=== PATIENT | male | born 1955 | race Caucasian/White ===

== ENCOUNTER → 2022-07-11 09:03 | Outpatient (BNVA) | payer MEDICARE, OTHER, SELFPAY | PROVIDERS: PCP Nurse Practitioner; Referring Provider Nurse Practitioner; Visit Provider Surgery | DX: H93.8X2 Other specified disorders of left ear (principal) | CPT/HCPCS: 99202 ==

== ENCOUNTER 2023-04-29 09:33 | Outpatient (REF) | payer MEDICARE, OTHER, SELFPAY ==
[2023-04-29 10:04] LABS: Basophils Percent Auto 0.4 % (0-2); Eosinophils Absolute Auto 0.3 X10*3/uL (0.0-0.4); Eosinophils Percent Auto 2.8 % (0-4); Hematocrit 47.9 % (42.0-52.0); Hemoglobin 15.5 g/dl (14.0-18.0); Imm Gran Abs Auto 0.05 X10*3/uL (0.00-0.03); Imm Gran Pct Auto 0.6 % (0.0-0.4); Lymphocytes Absolute Auto 3.1 X10*3/uL (1.2-4.9); Lymphocytes Percent Auto 34.8 % (20-40); MANUAL DIFF FLAG NO; Mean Corpuscular HGB Conc 32.4 g/dl (31.0-36.0); Mean Corpuscular Hemoglobin 27.6 pg (27.0-33.0); Mean Corpuscular Volume 85.2 fL (80.0-98.0); Monocytes Absolute Auto 0.8 X10*3/uL (0.1-1.2); Monocytes Percent Auto 8.7 % (2-11); Neutrophils Absolute Auto 4.7 x10*3/uL (2.0-8.3); Neutrophils Percent Auto 52.7 % (45-73); Platelet Count 226 X10*3/uL (160-400); Red Blood Count 5.62 X10*6/uL (4.60-5.80); Red Cell Distribution Width 13.6 % (11.0-16.0); White Blood Count 8.9 X10*3/uL (4.8-10.8)
[2023-04-29 11:46] LABS: Alanine Aminotransferase 19 U/L (0-40); Albumin Level 4.2 g/dL (3.5-5.0); Alkaline Phosphatase 78 U/L (39-117); Anion Gap 11 (12-20); Aspartate Amino Transferase 20 U/L (5-37); Bilirubin Total 0.6 mg/dL (0.0-1.0); Blood Urea Nitrogen 16 mg/dL (9-16); Calcium 8.8 mg/dL (8.4-10.2); Carbon Dioxide 24 mmol/L (22-29); Chloride 109 mmol/L (96-108); Cholesterol 150 mg/dL; Estimated Glomerular Filt Rate > 60; Glucose Fasting 115 mg/dL (60-99); HDL Cholesterol 36 mg/dL; LDL Cholesterol Calculated 102 mg/dl; Potassium 5.2 mmol/L (3.3-5.1); Sodium 139 mmol/L (135-145); Total Protein 6.9 g/dL (6.5-8.0); Triglycerides 61 mg/dL
[2023-04-29 12:00] LABS: PSA,Total (Free>4and<10) 0.33 ng/mL (0.00-4.00); TSH reflex Free T4 1.26 uIU/mL (0.32-4.0)
[2023-04-29 14:02] LABS: Estimated Average Glucose 114 mg/dL; Hemoglobin A1c % 5.6 %
== END 2023-04-29 09:34 | disposition home or self-care (01) ==
LOC: HO.LAB 09:33
PROVIDERS: PCP Nurse Practitioner Family; Visit Provider Nurse Practitioner Family
DX: Z12.5 Encounter for screening for malignant neoplasm of prostate (principal); Z13.220 Encounter for screening for lipoid disorders; Z13.0 Encounter for screening for diseases of the blood and blood-forming organs and certain disorders involving the immune mechanism; Z13.29 Encounter for screening for other suspected endocrine disorder; I10 Essential (primary) hypertension; R73.01 Impaired fasting glucose
CPT/HCPCS: 36415; 80053; 80061; 83036; 84153; 84443; 85025

== ENCOUNTER → 2023-05-15 10:07 | Outpatient (REF) | payer MEDICARE, OTHER, SELFPAY ==
[2023-05-15 12:03] LABS: Potassium 4.4 mmol/L (3.3-5.1)
== END ==
LOC: HO.SL 10:07
PROVIDERS: PCP Nurse Practitioner Family; Visit Provider Nurse Practitioner Family
DX: G47.33 Obstructive sleep apnea (adult) (pediatric) (principal); E87.5 Hyperkalemia
CPT/HCPCS: 36415; 84132; 95806

== ENCOUNTER 2023-06-07 09:35 | Outpatient (AMB) | payer MEDICARE, OTHER, SELFPAY ==
[2023-06-07 09:38] VITALS: BP 132/70; PULSE 70; O2SAT 96; BMI 36.6
--- NOTE | 2023-06-07 09:38 | MHC.OFFVIS ---
Intake Vital Signs 06/07/23 09:38 Height 5 ft 7 in Weight 233 lb 11.04 oz BMI 36.6 BP 132/70 Blood Pressure Location Lt brachial Position Sitting Pulse 70 Pulse Source Pulse Oximeter Pulse Oximetry (%) 96 Oxygen Delivery Method Room Air Intake Visit Reasons: Obstructive sleep apnea Intake Note: New patient seen today after sleep study. He used CPAP 15 years up until 2017.He lost approx 100 pounds that year and did not use it anymore. Airplane Refueler Required: No Auditor Internal: Auditor Internal offered & declined Accompanied by: Self / Same As Patient Allergies morphine Allergy (Severe, Verified 06/07/23 09:50) Vomiting Medication List - Last Reconciled 06/07/23 by Floridalma Robins LPN amlodipine 2.5 mg PO DAILY atorvastatin 10 mg PO DAILY irbesartan 150 mg PO DAILY HPI Obstructive sleep apnea HPI Details Miki is a pleasant 68 year old male, minimal former tobacco smoker and everyday marijuana smoker ,with underlying hypertension and impaired glucose tolerance.?He was referred after recent sleep study revealed an AHI of 36.6. He was previously on CPAP therapy with nasal pillows for 10-15 years but discontinued in 2017 after significant weight loss of 100 lbs. Unfortunately, he gained half the weight back and has become more symptomatic with daytime fatigue. He denies any personal or family history of lung conditions. REPLACED BY [facility] Medical History (Updated 06/07/23 @ 10:20 by Marilu Pop NP) Ear mass Impaired glucose tolerance Surgical History History of carpal tunnel surgery Family History (Updated 04/16/23 @ 13:32 by JOSE Oleary) Mother Diabetes mellitus WALLER (nonalcoholic steatohepatitis) Father No problems noted. Maternal Grandmother Leukemia Social History (Updated 06/07/23 @ 09:55 by Floridalma Robins LPN) Housing: House Alcohol intake: current Alcohol intake frequency: holidays/special occasions only Patient Tobacco Use Status: Former Tobacco user Years Smoked: Used cigarettes for a couple of years but is currently a daily marijuana sm service: No Current occupational status: retired Cognitive needs: No Hearing needs: No Vision needs: Yes Review of Systems Const Denies chills, Denies excessive sweating, Denies fever(s), Denies headache(s) and Denies night sweats Eyes Denies dry eyes, Denies irritation and Denies itchy eyes ENT Reports Normal hearing present, Denies headache(s), Denies nasal congestion, Denies nasal discharge, Denies post nasal drip and Denies sore throat Card Denies chest pain, Denies chest pain at rest, Denies chest pain with activity, Denies claudication, Denies leg edema, Denies dyspnea, Denies dyspnea on exertion, Denies orthopnea and Denies paroxysmal nocturnal dyspnea Resp Denies chest congestion, Denies cough, Denies excessive phlegm production, Denies pain on inspiration, Denies pain with cough, Denies dyspnea, Denies dyspnea on exertion, Denies stridor and Denies wheezing Musc Denies myalgias Neuro Reports Normal hearing present and Denies headache(s) Endo Denies excessive sweating Zenon/Lymph Denies lymphadenopathy Aller/Immun Denies itchy eyes, Denies seasonal rhinorrhea and Denies wheezing Physical Exam Vital Signs: Last Vital Signs Pulse 70 06/07/23 09:38 BP 132/70 06/07/23 09:38 Pulse Ox 96 06/07/23 09:38 Oxygen Delivery Method Room Air 06/07/23 09:38 BMI result Body Mass Index 36.6 Const General: cooperative, healthy appearing, comfortable, no acute distress, well developed and alert Nutritional Appearance: obese Orientation/consciousness: patient oriented x3 Limitations: no limitations HEENT Head: Yes normal to inspection, Yes normocephalic and Yes atraumatic Ears: hearing grossly normal bilaterally and external ears normal Eyes General: appearance normal, both eyes and all related structures Eyelids: Yes eyelids normal Sclerae: sclerae normal EOM: EOMs intact bilaterally Neck Neck: Yes normal visual inspection and Yes no lymphadenopathy Lymphatic: no lymphadenopathy noted Chest Chest palpation & inspection: normal inspection of the chest Resp Effort & Inspection: normal respiratory effort, able to speak in complete sentences, no audible wheezes, no cough, no stridor, not tachypneic, no tripod positioning and no use of accessory muscles Auscultation: clear to auscultation bilaterally Cardio Jugular venous distension: no JVD Rate: regular rate Rhythm: regular rhythm Skin Other: warm, dry General skin exam: no rashes or lesions noted Neuro General: patient oriented x3 Cranial nerves: Yes Normal hearing present Cognition (Neuro): normal cognition Gait exam (Neuro): Normal gait present Extrem General: Yes normal to inspection, Yes capillary refill normal, Yes no clubbing, cyanosis or edema and Yes no pedal edema Psych Appearance: grossly normal and well kempt Speech and movement: Normal speech and movement present and Clear speech present Affect: normal affect Attitude: cooperative Thought process: Normal thought process present Thought content: Normal thought content present Insight: Good insight present (Psych) Judgement: Good judgement present (Psych) Results Reviewed Results Reviewed: Assessment & Plan Assessment & Plan (1) PAULA (obstructive sleep apnea): Code(s): G47.33 - Obstructive sleep apnea (adult) (pediatric) (2) Nocturnal hypoxemia: Code(s): G47.34 - Idiopathic sleep related nonobstructive alveolar hypoventilation Plan Reviewed sleep study report with patient which revealed severe PAULA . Will send prescription for APAP therapy with settings 6-16 and send for overnight oximetry after he has used therapy for 2-3 months to see if compliance of CPAP will correct nocturnal hypoxia. All questions were answered and patient is in agreement of plan. Will follow up after patient has used CPAP therapy for 4 weeks. Coding Level of Care Code New Pt Level 4 (70635) Diagnoses PAULA (obstructive sleep apnea) G47.33 Nocturnal hypoxemia G47.34
== END 2023-06-07 10:20 | disposition home or self-care (01) ==
PROVIDERS: PCP Nurse Practitioner Family; Visit Provider Nurse Practitioner Family
DX: G47.33 Obstructive sleep apnea (adult) (pediatric) (principal); G47.34 Idiopathic sleep related nonobstructive alveolar hypoventilation
CPT/HCPCS: 99204

== ENCOUNTER → 2023-06-07 09:35 | Outpatient (BNVA) | payer MEDICARE, OTHER, SELFPAY | PROVIDERS: PCP Nurse Practitioner Family; Visit Provider Nurse Practitioner Family | DX: G47.33 Obstructive sleep apnea (adult) (pediatric) (principal); G47.34 Idiopathic sleep related nonobstructive alveolar hypoventilation | CPT/HCPCS: 99202 ==

== ENCOUNTER 2023-07-11 09:32 | Outpatient (REF) | payer MEDICARE, OTHER, SELFPAY ==
--- NOTE | ~2023-07-11 | XR_ITS ---
EXAMINATION: XR HIP, RIGHT CLINICAL INFORMATION: Pain COMPARISON: None available. TECHNIQUE: Two views of the right hip and one view of the pelvis. FINDINGS: Bone alignment is normal. No fracture or dislocation. Bilateral hip arthritis with joint space narrowing and osteophyte formation, mild. Bones of the pelvis are normal. Sacroiliac joints and pubic symphysis. Soft tissues are normal. XR/XR hip RT w PEL1V IMPRESSION: Mild hip arthritis.
== END 2023-07-11 09:33 | disposition home or self-care (01) ==
LOC: HO.XRAY 09:32
PROVIDERS: PCP Nurse Practitioner Family; Visit Provider Nurse Practitioner Family
DX: M25.551 Pain in right hip (principal)
CPT/HCPCS: 73502

== ENCOUNTER 2023-07-11 14:07 | Outpatient (AMB) | payer MEDICARE, OTHER, SELFPAY ==
[2023-07-11 14:11] VITALS: BP 122/80; PULSE 60; O2SAT 99; BMI 37.9
--- NOTE | 2023-07-11 14:11 | A.OFFPC_ITS ---
Vital Signs 07/11/23 14:11 Height 5 ft 7 in Weight 242 lb 4 oz BMI 37.9 BP 122/80 Blood Pressure Location Lt brachial Position Sitting Pulse 60 Pulse Source Pulse Oximeter Pulse Oximetry (%) 99 Oxygen Delivery Method Room Air Intake Visit Reasons: HTN, Hypercholestermia F/U Personal Lines Insurance Advisor Required: No Accompanied by: Self / Same As Patient Allergies morphine Allergy (Severe, Verified 07/11/23 14:11) Vomiting Tobacco use date assessed: 07/11/23 Fall risk assessment: No Falls in past year Last assessed Fall Risk: 07/11/23 Dental Screening Dental Screen Date: 07/11/23 Did you have a dental visit in the last 12 months?: Yes Did you have a dental problem in the last 6 months where you did not have access to dental care?: No Was dental information given to patient?: Patient has dentist HPI HPI Comments History of Present Illness Details History significant for hypercholesteremia, hypertension and obstructive sleep apnea. Patient last seen in March presents today for follow-up visit. Review of the notes patient was seen by pulmonology for recent sleep study showing severe sleep apnea.Patient was sent prescription for APAP therapy with settings 6-16 and send for overnight oximetry after he has used therapy for 2-3 months to see if compliance of CPAP will correct nocturnal hypoxia. Patient reports right hip pain times 10 days denies any acute injury, states he takes ibuprofen with relief of pain. Patient would like x-ray to evaluate for arthritis. [facility] Medical History (Updated 07/11/23 @ 15:15 by JOSE Oleary) Anal fissure Ear mass Impaired glucose tolerance Surgical History History of carpal tunnel surgery Family History Mother Diabetes mellitus WALLER (nonalcoholic steatohepatitis) Father No problems noted. Maternal Grandmother Leukemia Social History Housing: House Alcohol intake: current Alcohol intake frequency: holidays/special occasions only Patient Tobacco Use Status: Former Tobacco user Years Smoked: Used cigarettes for a couple of years but is currently a daily marijuana sm e-Cigarette/Vaping Use: Never Used service: No Current occupational status: retired Cognitive needs: No Hearing needs: No Vision needs: Yes Questionnaire PHQ-9 Over the last 2 weeks, how often have you been bothered by any of the following problems? 1. Little interest or pleasure in doing things: more than half the days 2. Feeling down, depressed, or hopeless: several days 3. Trouble falling or staying asleep, or sleeping too much: not at all 4. Feeling tired or having little energy: several days 5. Poor appetite or overeating: several days 6. Feeling bad about yourself - or that you are a failure or have let yourself or your family down: several days 7. Trouble concentrating on things, such as reading the newspaper or watching television: several days 8. Moving or speaking so slowly that other people could have noticed. Or the opposite - being so fidgety or restless that you have been moving around a lot more than usual: several days 9. Thoughts that you would be better off or of hurting yourself in some way: not at all Total score: 8 Depression Screening Interpretation: Positive 95149 - PHQ-9 Billing: Yes Source: Developed by Drs. Froy Chaudhary, Daisy Davis, Paul Madrid and colleagues, with an educational arpit from [employer]. Thrive Questionnaire Date Thrive assessed: 07/11/23 I am a: Patient What is your living situation today?: I have a steady place to live Within the past 12 months, did the food you bought not last and you didn't have the money to get more?: Never true Within the past 12 months, did you worry whether your food would run out before you got money to buy more?: Never true Do you have trouble paying for medicines?: No Do you have trouble getting transportation to medical appointments?: No Do you have trouble paying your heating and electricity bill?: No Do you have trouble taking care of your child, family member or friend?: No Do you have trouble with day-to-day activities such as bathing, preparing meals, shopping, managing finances, etc.?: No Are you currently unemployed and looking for a job?: No Are you interested in more education?: No Please select the resources that you would like help with: None Currently or been in a relationship where the following occur: no concerns reported AUDIT C Alcohol Use Questionnaire (AUDIT-C) 1. How often do you have a drink containing alcohol?: 2-3 times a week 2. How many drinks containing alcohol do you have on a typical day when you are drinking?: 1 or 2 3. How often do you have six or more drinks on one occasion?: Never Total Score: 3 ROMEO-7 AMB Questionnaire ROMEO-7 Date ROMEO - 7 assessed: 07/11/23 Feeling nervous, anxious, or on edge: 0 = Not at all Not being able to stop or control worryin = Not at all Worrying too much about different things: 0 = Not at all Trouble relaxin = Not at all Being so restless that it is hard to sit still: 0 = Not at all Becoming easily annoyed or irritable: 0 = Not at all Feeling afraid as if something awful might happen: 0 = Not at all Total ROMEO-7 score (0-4 normal; 5-9 mild; 10-14 moderate; 15-21 severe): 0 Source: Developed by Drs. Froy Chaudhary, Daisy Davis, Paul Madrid and colleagues, with an educational arpit from [employer]. ROMEO-7 Assessment Billing ROMEO-7 Assessment Tool: ROMEO-7 Assessment 02511 Review of Systems Const Denies chills, Denies fatigue, Denies fever(s) and Denies poor appetite Eyes Denies no additional complaints ENT Reports Normal hearing present Card Denies chest pain, Denies syncope, Denies rapid heart rate and Denies dyspnea Resp Denies cough and Denies dyspnea GI Denies change in stool character, Denies constipation, Denies diarrhea, Denies nausea and Denies vomiting Denies dysuria, Denies urinary frequency and Denies urinary urgency Neuro Reports Normal hearing present, Denies confusion and Denies syncope Psych Denies confusion Endo Denies fatigue Physical exam (Primary Care) Vital Signs: Last Vital Signs Pulse 60 07/11/23 14:11 BP 122/80 07/11/23 14:11 Pulse Ox 99 07/11/23 14:11 Oxygen Delivery Method Room Air 07/11/23 14:11 BMI result Body Mass Index 37.9 Tobacco/Smoking Status: Tobacco use Status Tobacco use date assessed 07/11/23 07/11/23 14:15 Patient Tobacco Use Status Former Tobacco user 07/11/23 14:15 e-Cigarette/Vaping Use Never Used 07/11/23 14:15 PHQ-9: PHQ-9 Score PHQ-9: Total score 8 07/11/23 14:23 Depression Screening Interpretation: Positive Thrive Assessment: Date of Thrive Assessment Date Thrive assessed 07/11/23 07/11/23 14:15 Currently or been in a relationship where the following occur: no concerns reported Const General: No confusion Orientation/consciousness: No confusion HENMT Head: Yes normocephalic and Yes atraumatic Eyes Conjunctivae: conjunctivae normal Chest Chest palpation & inspection: normal inspection of the chest Resp Effort & Inspection: normal respiratory effort Auscultation: clear to auscultation bilaterally, no crackles, no rhonchi and no wheezes Cardio Rate: regular rate Rhythm: regular rhythm Heart sounds: S1 normal heart sound present and S2 normal heart sound present GI Inspection: Yes normal to inspection Neuro General: No confusion Cranial nerves: Yes Normal hearing present Extrem General: No edema Assessment and Plan Assessment & Plan (1) Right hip pain: Code(s): M25.551 - Pain in right hip Plan: Right hip x-ray ordered. Patient advise can continue to take [id number] ibuprofen as needed for pain with food to prevent GI upset. Discussed referral to physical therapy home however patient would like to proceed with x-ray prior to having referral for this. (2) Hypercholesteremia: Code(s): E78.00 - Pure hypercholesterolemia, unspecified Plan: Continue on atorvastatin 10 mg daily. Follow low-cholesterol diet. (3) PAULA (obstructive sleep apnea): Code(s): G47.33 - Obstructive sleep apnea (adult) (pediatric) Plan: Continue to follow with pulmonology continue to use APAP machins for greater than four hours a night with good effect. (4) Hypertension: Code(s): I10 - Essential (primary) hypertension Plan: Continue on amlodipine 2.5 mg daily and irbesartan 150mg daily. Follow low salt diet and excercise. Plan Follow-up in 6 months. Orders: Orders Comprehensive [place]. Panel Fast 6 Months E78.00 - Pure hypercholesterolemia, unspecified Lipid Panel 6 Months Z13.220 - Encounter for screening for lipoid disorders Complete Blood Count Auto Diff 6 Months Z13.0 - Encounter for screening for diseases of the blood and blood-forming organs and certain disorders involving the immune mechanism Coding Level of Care Code Est Pt Level 4 (07876) Diagnoses Right hip pain M25.551 Hypercholesteremia E78.00 PAULA (obstructive sleep apnea) G47.33 Hypertension I10 Additional Codes ROMEO-7 Assessment Billing - ROMEO-7 Assessment Tool: ROMEO-7 Assessment 15007 ([id number])
== END 2023-07-11 14:39 | disposition home or self-care (01) ==
PROVIDERS: PCP Nurse Practitioner Family; Visit Provider Nurse Practitioner Family
DX: M25.551 Pain in right hip (principal); E78.00 Pure hypercholesterolemia, unspecified; G47.33 Obstructive sleep apnea (adult) (pediatric); I10 Essential (primary) hypertension
CPT/HCPCS: 99214

== ENCOUNTER 2023-07-26 09:08 | Outpatient (AMB) | payer MEDICARE, OTHER, SELFPAY ==
[2023-07-26 09:11] VITALS: BP 130/68; PULSE 64; O2SAT 96; BMI 37.1
--- NOTE | 2023-07-26 09:11 | A.OFFVIS_ITS ---
Intake Vital Signs 07/26/23 09:11 Height 5 ft 7 in Weight 236 lb 15.951 oz BMI 37.1 BP 130/68 Blood Pressure Location Rt brachial Position Sitting Pulse 64 Pulse Oximetry (%) 96 Intake Visit Reasons: Obstructive sleep apnea Home Extension Agent Required: No Compo Caster: Compo Caster offered & declined Accompanied by: Self / Same As Patient Allergies morphine Allergy (Severe, Verified 07/26/23 09:18) Vomiting Medication List - Last Reconciled 07/26/23 by Floridalma Robins LPN amlodipine 2.5 mg PO DAILY atorvastatin 10 mg PO DAILY irbesartan 150 mg PO DAILY HPI Obstructive sleep apnea HPI Details Miki is a pleasant 68 year old male, minimal former tobacco smoker and everyday marijuana smoker ,with underlying severe obstructive sleep apnea.?Since the last visit, he started CPAP therapy and has been averaging 5 hours per night with notable improvements in daytime fatigue. From a respiratory standpoint, he feels his symptoms are well controlled and denies any other symptoms. COUNTS INCLUDE 234 BEDS AT THE [facility] Medical History (Updated 07/16/23 @ 13:12 by JOSE Oleary) Anal fissure Ear mass Impaired glucose tolerance Surgical History History of carpal tunnel surgery Family History Mother Diabetes mellitus WALLER (nonalcoholic steatohepatitis) Father No problems noted. Maternal Grandmother Leukemia Social History Housing: House Alcohol intake: current Alcohol intake frequency: holidays/special occasions only Patient Tobacco Use Status: Former Tobacco user Years Smoked: Used cigarettes for a couple of years but is currently a daily marijuana sm e-Cigarette/Vaping Use: Never Used service: No Current occupational status: retired Cognitive needs: No Hearing needs: No Vision needs: Yes Review of Systems Const Denies chills, Denies excessive sweating, Denies fever(s), Denies headache(s) and Denies night sweats Eyes Denies dry eyes, Denies irritation and Denies itchy eyes ENT Reports Normal hearing present, Denies headache(s), Denies nasal congestion, Denies nasal discharge, Denies post nasal drip and Denies sore throat Card Denies chest pain, Denies chest pain at rest, Denies chest pain with activity, Denies claudication, Denies leg edema, Denies dyspnea, Denies dyspnea on exertion, Denies orthopnea and Denies paroxysmal nocturnal dyspnea Resp Denies chest congestion, Denies cough, Denies excessive phlegm production, Denies pain on inspiration, Denies pain with cough, Denies dyspnea, Denies dyspnea on exertion, Denies stridor and Denies wheezing Musc Denies myalgias Neuro Reports Normal hearing present and Denies headache(s) Endo Denies excessive sweating Zenon/Lymph Denies lymphadenopathy Aller/Immun Denies itchy eyes, Denies seasonal rhinorrhea and Denies wheezing Physical Exam Vital Signs: Last Vital Signs Pulse 64 07/26/23 09:11 BP 130/68 07/26/23 09:11 Pulse Ox 96 07/26/23 09:11 BMI result Body Mass Index 37.1 Const General: cooperative, healthy appearing, comfortable, no acute distress, well developed and alert Nutritional Appearance: obese Orientation/consciousness: patient oriented x3 Limitations: no limitations HEENT Head: Yes normal to inspection, Yes normocephalic and Yes atraumatic Ears: hearing grossly normal bilaterally and external ears normal Eyes General: appearance normal, both eyes and all related structures Eyelids: Yes eyelids normal Sclerae: sclerae normal EOM: EOMs intact bilaterally Neck Neck: Yes normal visual inspection and Yes no lymphadenopathy Lymphatic: no lymphadenopathy noted Chest Chest palpation & inspection: normal inspection of the chest Resp Effort & Inspection: normal respiratory effort, able to speak in complete sentences, no audible wheezes, no cough, no stridor, not tachypneic, no tripod positioning and no use of accessory muscles Auscultation: clear to auscultation bilaterally Cardio Jugular venous distension: no JVD Rate: regular rate Rhythm: regular rhythm Skin Other: warm, dry General skin exam: no rashes or lesions noted Neuro General: patient oriented x3 Cranial nerves: Yes Normal hearing present Cognition (Neuro): normal cognition Gait exam (Neuro): Normal gait present Extrem General: Yes normal to inspection, Yes capillary refill normal, Yes no clubbing, cyanosis or edema and Yes no pedal edema Psych Appearance: grossly normal and well kempt Speech and movement: Normal speech and movement present and Clear speech present Affect: normal affect Attitude: cooperative Thought process: Normal thought process present Thought content: Normal thought content present Insight: Good insight present (Psych) Judgement: Good judgement present (Psych) Results Reviewed Results Reviewed: Assessment & Plan Assessment & Plan (1) PAULA (obstructive sleep apnea): Code(s): G47.33 - Obstructive sleep apnea (adult) (pediatric) (2) Nocturnal hypoxemia: Code(s): G47.34 - Idiopathic sleep related nonobstructive alveolar hypoventilation Plan Reviewed compliance report with patient and he has been wearing his device on average 5 hours per night. He does report some difficulties adjusting. He is aware the goal is to use CPAP therapy the entire night which he plans to work towards. Overall he reports improvements in daytime fatigue. Will send for overnight oximetry after he has used therapy for a few months to see if compliance of CPAP will correct nocturnal hypoxia. All questions were answered and patient is in agreement of plan. Will follow up in three months or sooner if needed. Coding Level of Care Code Est Pt Level 3 (83556) Diagnoses PAULA (obstructive sleep apnea) G47.33 Nocturnal hypoxemia G47.34
== END 2023-07-26 09:45 | disposition home or self-care (01) ==
PROVIDERS: PCP Nurse Practitioner Family; Visit Provider Nurse Practitioner Family
DX: G47.33 Obstructive sleep apnea (adult) (pediatric) (principal); G47.34 Idiopathic sleep related nonobstructive alveolar hypoventilation
CPT/HCPCS: 99213

== ENCOUNTER → 2023-07-26 09:08 | Outpatient (BNVA) | payer MEDICARE, OTHER, SELFPAY | PROVIDERS: PCP Nurse Practitioner Family; Visit Provider Nurse Practitioner Family | DX: G47.33 Obstructive sleep apnea (adult) (pediatric) (principal); G47.34 Idiopathic sleep related nonobstructive alveolar hypoventilation | CPT/HCPCS: 99212 ==

== ENCOUNTER 2023-10-25 13:38 | Outpatient (AMB) | payer MEDICARE, OTHER, SELFPAY ==
[2023-10-25 13:43] VITALS: BP 126/74; PULSE 78; O2SAT 95; BMI 40.1
--- NOTE | 2023-10-25 13:43 | A.OFFVIS_ITS ---
Intake Vital Signs 10/25/23 13:43 Height 5 ft 7 in Weight 256 lb BMI 40.1 BP 126/74 Blood Pressure Location Lt brachial Position Sitting Pulse 78 Pulse Source Pulse Oximeter Pulse Oximetry (%) 95 Oxygen Delivery Method Room Air Intake Visit Reasons: Obstructive sleep apnea Social Media Specialist Required: No Heat Sealing Machine Operator: Heat Sealing Machine Operator offered & declined Accompanied by: Self / Same As Patient Allergies morphine Allergy (Severe, Verified 10/25/23 13:47) Vomiting Medication List - Last Reconciled 10/25/23 by Floridalma Robins LPN amlodipine 2.5 mg PO DAILY atorvastatin 10 mg PO DAILY irbesartan 150 mg PO DAILY HPI Obstructive sleep apnea HPI Details Miki is a pleasant 68 year old male, minimal former tobacco smoker and everyday marijuana smoker ,with underlying severe obstructive sleep apnea.?Since the last visit, he started CPAP therapy and has been averaging 5 hours per night with notable improvements in daytime fatigue. From a respiratory standpoint, he feels his symptoms are well controlled and denies any other symptoms. We reviewed compliance report which did reveal less than adequate compliance, however patient states he has been out of town on four different occasions over the past three months. He states he is concerned about losing the CPAP machine. Overall, he reports improvements with using CPAP therapy and AHI <3, prior to using >30. [facility] Medical History (Updated 07/16/23 @ 13:12 by JOSE Oleary) Anal fissure Impaired glucose tolerance Ear mass Surgical History History of carpal tunnel surgery Family History Mother Diabetes mellitus WALLER (nonalcoholic steatohepatitis) Father No problems noted. Maternal Grandmother Leukemia Social History (Updated 10/25/23 @ 13:47 by Floridalma Robins LPN) Housing: House Alcohol intake: current Alcohol intake frequency: holidays/special occasions only Patient Tobacco Use Status: Former Tobacco user Years Smoked: Used cigarettes for a couple of years but is currently a daily marijuana sm e-Cigarette/Vaping Use: Never Used service: No Current occupational status: retired Cognitive needs: No Hearing needs: No Vision needs: Yes Review of Systems Const Denies chills, Denies excessive sweating, Denies fever(s), Denies headache(s) and Denies night sweats Eyes Denies dry eyes, Denies irritation and Denies itchy eyes ENT Reports Normal hearing present, Denies headache(s), Denies nasal congestion, Denies nasal discharge, Denies post nasal drip and Denies sore throat Card Denies chest pain, Denies chest pain at rest, Denies chest pain with activity, Denies claudication, Denies leg edema, Denies dyspnea, Denies dyspnea on exertion, Denies orthopnea and Denies paroxysmal nocturnal dyspnea Resp Denies chest congestion, Denies cough, Denies excessive phlegm production, Denies pain on inspiration, Denies pain with cough, Denies dyspnea, Denies dyspnea on exertion, Denies stridor and Denies wheezing Musc Denies myalgias Neuro Reports Normal hearing present and Denies headache(s) Endo Denies excessive sweating Zenon/Lymph Denies lymphadenopathy Aller/Immun Denies itchy eyes, Denies seasonal rhinorrhea and Denies wheezing Physical Exam Vital Signs: Last Vital Signs Pulse 78 10/25/23 13:43 BP 126/74 10/25/23 13:43 Pulse Ox 95 10/25/23 13:43 Oxygen Delivery Method Room Air 10/25/23 13:43 BMI result Body Mass Index 40.1 Const General: cooperative, healthy appearing, comfortable, no acute distress, well developed and alert Nutritional Appearance: obese Orientation/consciousness: patient oriented x3 Limitations: no limitations HEENT Head: Yes normal to inspection, Yes normocephalic and Yes atraumatic Ears: hearing grossly normal bilaterally and external ears normal Eyes General: appearance normal, both eyes and all related structures Eyelids: Yes eyelids normal Sclerae: sclerae normal EOM: EOMs intact bilaterally Neck Neck: Yes normal visual inspection and Yes no lymphadenopathy Lymphatic: no lymphadenopathy noted Chest Chest palpation & inspection: normal inspection of the chest Resp Effort & Inspection: normal respiratory effort, able to speak in complete sentences, no audible wheezes, no cough, no stridor, not tachypneic, no tripod positioning and no use of accessory muscles Auscultation: clear to auscultation bilaterally Cardio Jugular venous distension: no JVD Rate: regular rate Rhythm: regular rhythm Skin Other: warm, dry General skin exam: no rashes or lesions noted Neuro General: patient oriented x3 Cranial nerves: Yes Normal hearing present Cognition (Neuro): normal cognition Gait exam (Neuro): Normal gait present Extrem General: Yes normal to inspection, Yes capillary refill normal, Yes no clubbing, cyanosis or edema and Yes no pedal edema Psych Appearance: grossly normal and well kempt Speech and movement: Normal speech and movement present and Clear speech present Affect: normal affect Attitude: cooperative Thought process: Normal thought process present Thought content: Normal thought content present Insight: Good insight present (Psych) Judgement: Good judgement present (Psych) Assessment & Plan Assessment & Plan (1) PAULA (obstructive sleep apnea): Code(s): G47.33 - Obstructive sleep apnea (adult) (pediatric) (2) Nocturnal hypoxemia: Code(s): G47.34 - Idiopathic sleep related nonobstructive alveolar hypoventilation Plan Reviewed compliance report with patient and he has been wearing his device on average 5 hours per night. He does report some difficulties adjusting, mostly with nasal congestion, advised to increase humidity. He is aware the goal is to use CPAP therapy greater than 4 hours, atleast 70% of the month. Again, he reports improvements in daytime fatigue. Since he has been using for a few months, will enter order overnight oximetry, as he had significant nocturnal hypoxemia during the sleep study. All questions were answered and patient is in agreement of plan. Will follow up in six months or sooner if needed. Orders: Orders Overnight Pulse Oximetry Today G47.34 - Idiopathic sleep related nonobstructive alveolar hypoventilation Coding Level of Care Code Est Pt Level 4 (74725) Diagnoses PAULA (obstructive sleep apnea) G47.33 Nocturnal hypoxemia G47.34
== END 2023-10-25 14:19 | disposition home or self-care (01) ==
PROVIDERS: PCP Nurse Practitioner Family; Visit Provider Nurse Practitioner Family
DX: G47.33 Obstructive sleep apnea (adult) (pediatric) (principal); G47.34 Idiopathic sleep related nonobstructive alveolar hypoventilation
CPT/HCPCS: 99214

== ENCOUNTER → 2023-10-25 13:38 | Outpatient (BNVA) | payer MEDICARE, OTHER, SELFPAY | PROVIDERS: PCP Nurse Practitioner Family; Visit Provider Nurse Practitioner Family | DX: G47.33 Obstructive sleep apnea (adult) (pediatric) (principal); G47.34 Idiopathic sleep related nonobstructive alveolar hypoventilation | CPT/HCPCS: 99212 ==

== ENCOUNTER 2024-02-10 09:27 | Outpatient (AMB) | payer MEDICARE, OTHER, SELFPAY ==
--- NOTE | 2024-02-10 09:38 | A.OFFPC_ITS ---
Vital Signs 02/10/24 09:41 Height 5 ft 7 in Weight 254 lb BMI 39.8 BP 130/62 Blood Pressure Location Lt brachial Position Sitting Pulse 63 Pulse Source Pulse Oximeter Pulse Oximetry (%) 94 Oxygen Delivery Method Room Air Intake Visit Reasons: follow up Intake Note: Patient is here to follow up on PAULA, HTN, Hypercholesteremia, Impaired fasting glucose. Sane Nurse Required: No Plumber'S Assistant: Not Required per policy Accompanied by: Self / Same As Patient Allergies morphine Allergy (Severe, Verified 02/10/24 11:14) Vomiting Medication List - Last Reconciled 02/10/24 by Eric Saleem MD amlodipine 2.5 mg PO DAILY atorvastatin 10 mg PO DAILY irbesartan 150 mg PO DAILY Tobacco use date assessed: 02/10/24 Fall risk assessment: No Falls in past year Last assessed Fall Risk: 02/10/24 Dental Screening Dental Screen Date: 02/10/24 Did you have a dental visit in the last 12 months?: Yes Did you have a dental problem in the last 6 months where you did not have access to dental care?: No Was dental information given to patient?: Patient has dentist HPI follow up HPI Details 68-year-old male presents to the office to discuss his medical problems. I will be assuming his care as the previous provider has left the practice. Patient has a fissure on the skin along his buttocks. Itches and has discomfort symptoms. Patient is retired and able to function and do all activities of daily living. If he does not take fiber, his stools tend to be loose. He has had a colonoscopy at age 52 and at 89. No polyps have been identified. Regular use of marijuana. COUNTS INCLUDE 234 BEDS AT THE [facility] Medical History (Updated 02/10/24 @ 11:17 by Eric Saleem MD) Class 2 severe obesity with body mass index (BMI) of 35 to 39.9 with serious comorbidity Anal fissure Impaired glucose tolerance Ear mass Surgical History History of ear surgery History of carpal tunnel surgery Family History Mother Diabetes mellitus WALLER (nonalcoholic steatohepatitis) Father No problems noted. Maternal Grandmother Leukemia Other Mental health disorder Substance use disorder Social History Housing: House Alcohol intake: current Alcohol intake frequency: a few times a week Patient Tobacco Use Status: Former Tobacco user Years Smoked: Used cigarettes for a couple of years but is currently a daily marijuana sm e-Cigarette/Vaping Use: Never Used service: No Current occupational status: retired Cognitive needs: No Hearing needs: No Vision needs: Yes (Glasses) Questionnaire PHQ-9 Over the last 2 weeks, how often have you been bothered by any of the following problems? 1. Little interest or pleasure in doing things: nearly every day 2. Feeling down, depressed, or hopeless: more than half the days 3. Trouble falling or staying asleep, or sleeping too much: nearly every day 4. Feeling tired or having little energy: several days 5. Poor appetite or overeating: nearly every day 6. Feeling bad about yourself - or that you are a failure or have let yourself or your family down: several days 7. Trouble concentrating on things, such as reading the newspaper or watching television: more than half the days 8. Moving or speaking so slowly that other people could have noticed. Or the opposite - being so fidgety or restless that you have been moving around a lot more than usual: not at all 9. Thoughts that you would be better off or of hurting yourself in some way: nearly every day Total score: 18 Depression Screening Interpretation: Positive Depression Screening Follow-up: Existing condition and Community Mental Health Worker F/U Depression Screening Done: Yes Source: Developed by Drs. Froy Chaudhary, Daisy Davis, Paul Madrid and colleagues, with an educational arpit from [employer]. Thrive Questionnaire Date Thrive assessed: 02/10/24 I am a: Patient What is your living situation today?: I have a steady place to live Within the past 12 months, did the food you bought not last and you didn't have the money to get more?: Never true Within the past 12 months, did you worry whether your food would run out before you got money to buy more?: Never true Do you have trouble paying for medicines?: No Do you have trouble getting transportation to medical appointments?: No Do you have trouble paying your heating and electricity bill?: No Do you have trouble taking care of your child, family member or friend?: No Do you have trouble with day-to-day activities such as bathing, preparing meals, shopping, managing finances, etc.?: No Are you currently unemployed and looking for a job?: No Are you interested in more education?: No Currently or been in a relationship where the following occur: no concerns reported THRIVE Score: 0 AUDIT C Alcohol Use Questionnaire (AUDIT-C) 1. How often do you have a drink containing alcohol?: 2-3 times a week 2. How many drinks containing alcohol do you have on a typical day when you are drinking?: 1 or 2 3. How often do you have six or more drinks on one occasion?: Never Total Score: 3 ROMEO-7 AMB Questionnaire ROMEO-7 Date ROMEO - 7 assessed: 02/10/24 Feeling nervous, anxious, or on edge: 0 = Not at all Not being able to stop or control worryin = Not at all Worrying too much about different things: 0 = Not at all Trouble relaxin = Not at all Being so restless that it is hard to sit still: 0 = Not at all Becoming easily annoyed or irritable: 0 = Not at all Feeling afraid as if something awful might happen: 0 = Not at all Total ORMEO-7 score (0-4 normal; 5-9 mild; 10-14 moderate; 15-21 severe): 0 Source: Developed by Drs. Froy Chaudhary, Daisy Davis, Paul Madrid and colleagues, with an educational arpti from [employer]. Physical exam (Primary Care) Vital Signs: Last Vital Signs Pulse 63 02/10/24 09:41 BP 130/62 02/10/24 09:41 Pulse Ox 94 02/10/24 09:41 Oxygen Delivery Method Room Air 02/10/24 09:41 Blood pressure is stable on current medications. BMI result Body Mass Index 39.8 BMI Assessment/Plan discussion: High (1 lb per week weight loss suggested.) BMI High, discussed plan: lifestyle, weight reduction and dietary Tobacco/Smoking Status: Tobacco use Status Tobacco use date assessed 02/10/24 02/10/24 09:41 Patient Tobacco Use Status Former Tobacco user 02/10/24 09:49 e-Cigarette/Vaping Use Never Used 02/10/24 09:49 PHQ-9: PHQ-9 Score PHQ-9: Total score 18 02/10/24 09:53 Depression Screening Interpretation: Positive Depression Screening Follow-up: Existing condition and Community Mental Health Worker F/U Thrive Assessment: Date of Thrive Assessment Date Thrive assessed 02/10/24 02/10/24 09:41 Currently or been in a relationship where the following occur: no concerns reported Advance Care Planning discussion: Exists, not on file Who was present: Patient Forms completed: Health Care Proxy and MOLST Actual minutes spent: 5 Const General: cooperative and healthy appearing Nutritional Appearance: well nourished Orientation/consciousness: patient oriented x3 Limitations: no limitations HENMT Head: Yes normal to inspection Eyes General: appearance normal, both eyes and all related structures Neck Neck: Yes normal visual inspection Chest Chest palpation & inspection: normal palpation of entire chest wall Resp Effort & Inspection: normal respiratory effort Skin Other: Intergluteal cleft: Erythematous area with break of skin. Neuro General: patient oriented x3 Results AMB Hemoglobin A1c AMB Hemoglobin A1c 5.9 % Last Edit by PHILLIP Knapp on 02/10/24 09:54 Results Reviewed Results Reviewed: Laboratory Last Values Hgb A1c (Clinic) 5.9 % (4.0-6.0) 02/10/24 09:41 Assessment and Plan Assessment & Plan (1) Hypertension: Code(s): I10 - Essential (primary) hypertension Plan: Blood work ordered. Continue current medications. (2) Hypercholesteremia: Code(s): E78.00 - Pure hypercholesterolemia, unspecified Plan: Blood work ordered. Will call with the results. (3) PAULA (obstructive sleep apnea): Code(s): G47.33 - Obstructive sleep apnea (adult) (pediatric) Plan: Continue current management. (4) Irritant dermatitis: Code(s): L24.9 - Irritant contact dermatitis, unspecified cause Plan Hydrocortisone 2 and 0.5% cream to be applied to the affected area. Patient was advised to keep the area dry. Orders: Orders AMB Hemoglobin A1c Today R73.01 - Impaired fasting glucose Lipid Panel Today I10 - Essential (primary) hypertension Liver Panel Today I10 - Essential (primary) hypertension UA and rflx microscopic Today I10 - Essential (primary) hypertension Basic Metabolic Panel Today I10 - Essential (primary) hypertension Complete Blood Count no Diff Today I10 - Essential (primary) hypertension Thyroid Stimulating Hormone Today I10 - Essential (primary) hypertension Coding Level of Care Code Est Pt Level 4 (17326) Diagnoses Hypertension I10 Hypercholesteremia E78.00 PAULA (obstructive sleep apnea) G47.33 Irritant dermatitis L24.9 Additional Codes Vital Signs *Quality* - Advance Care Planning discussion: Exists, not on file ([id number])
[2024-02-10 09:41] VITALS: BP 130/62; PULSE 63; O2SAT 94; BMI 39.8
== END 2024-02-10 10:44 | disposition home or self-care (01) ==
PROVIDERS: PCP Nurse Practitioner Family; Visit Provider Internal Medicine
DX: I10 Essential (primary) hypertension (principal); E78.00 Pure hypercholesterolemia, unspecified; G47.33 Obstructive sleep apnea (adult) (pediatric); L24.9 Irritant contact dermatitis, unspecified cause; R73.01 Impaired fasting glucose; Z00.00 Encounter for general adult medical examination without abnormal findings
CPT/HCPCS: 1123F; 83036; 99214

== ENCOUNTER 2024-03-30 08:58 | Outpatient (REF) | payer MEDICARE, OTHER, SELFPAY ==
[2024-03-30 09:32] LABS: Hematocrit 44.6 % (42.0-52.0); Hemoglobin 14.6 g/dl (14.0-18.0); Mean Corpuscular HGB Conc 32.7 g/dl (31.0-36.0); Mean Corpuscular Hemoglobin 27.3 pg (27.0-33.0); Mean Corpuscular Volume 83.4 fL (80.0-98.0); Mean Platelet Volume 9.3 fL (9.4-12.4); Platelet Count 279 X10*3/uL (160-400); Red Blood Count 5.35 X10*6/uL (4.60-5.80); Red Cell Distribution Width 14.6 % (11.0-16.0); White Blood Count 10.9 X10*3/uL (4.8-10.8)
[2024-03-30 09:37] LABS: Appearance Urine Clear; Color Urine Yellow; Glucose Urine UA Negative (Negative); Leukocyte Esterase Urine Small (1+) (Negative); Nitrite Urine Negative (Negative); PH 5.5 (5.0-9.0); Specific Gravity - Urine 1.015 (1.005-1.025); UMIC TRIGGER UA YES; Urine Blood Negative (Negative); Urine Ketones Negative (Negative); Urine Protein Negative (Neg-Trace)
[2024-03-30 09:47] LABS: Bacteria Urine None Seen (None Seen); Hyaline Casts Urine 0-2 /LPF (0-2); RBC Urine 0-2 /HPF (0-2); Squamous Epithelial Cell Urine 0-2 /HPF (0-2); WBC Urine 0-5 /HPF (0-5)
[2024-03-30 10:18] LABS: Alanine Aminotransferase 19 U/L (0-40); Albumin Level 4.2 g/dL (3.5-5.0); Alkaline Phosphatase 101 U/L (39-117); Anion Gap 15 (12-20); Aspartate Amino Transferase 22 U/L (5-37); Bilirubin Direct 0.2 mg/dL (0.0-0.5); Bilirubin Total 0.6 mg/dL (0.0-1.0); Blood Urea Nitrogen 10 mg/dL (9-16); Calcium 9.5 mg/dL (8.4-10.2); Carbon Dioxide 25 mmol/L (22-29); Chloride 108 mmol/L (96-108); Cholesterol 135 mg/dL (<200); Estimated Glomerular Filt Rate > 60; Glucose Random 126 mg/dL (60-115); HDL Cholesterol 32 mg/dL (>40); LDL Cholesterol Calculated 88 mg/dL (<100); Potassium 4.7 mmol/L (3.3-5.1); Sodium 143 mmol/L (135-145); Total Protein 7.5 g/dL (6.5-8.0); Triglycerides 76 mg/dL (<150)
[2024-03-30 10:35] LABS: Thyroid Stimulating Hormone 2.29 uIU/mL (0.32-4.0)
== END 2024-03-30 08:59 | disposition home or self-care (01) ==
LOC: HO.LAB 08:58
PROVIDERS: PCP Internal Medicine; Visit Provider Internal Medicine
DX: I10 Essential (primary) hypertension (principal)
CPT/HCPCS: 36415; 80048; 80061; 80076; 81001; 84443; 85027

== ENCOUNTER 2025-04-12 13:34 | Outpatient (AMB) | payer MEDICARE, OTHER, SELFPAY ==
--- NOTE | 2025-04-12 13:05 | A.OFFVIS_ITS ---
Vital Signs 04/12/25 13:37 Height 5 ft 7 in Weight 268 lb 15.423 oz BMI 42.1 BP 130/74 Blood Pressure Location Rt brachial Position Sitting Pulse 60 Pulse Source Pulse Oximeter Pulse Oximetry (%) 94 Oxygen Delivery Method Room Air Intake Visit Reasons: paula Allergies morphine Allergy (Severe, Verified 04/12/25 13:40) Vomiting HPI HPI paula: Details: Miki is a pleasant 70 year old male, minimal former tobacco smoker and everyday marijuana smoker ,with underlying severe obstructive sleep apnea and moderate nocturnal hypoxemia. Patient was last evaluated 10/2023 and has been lost to follow up. Since the last visit, he was started on CPAP therapy and presents to review compliance report. Prior home sleep study revealed severe PAULA, AHI 36.6, with nocturnal hypoxemia, lowest 82%, <88% 126 minutes, with recommendations for in lab sleep study however patient lost to follow up. We reviewed compliance report which revealed less than adequate compliance, in regards to usage greater than 4 hours but has been using for >70% of the time. He attributes difficulties with mask and has others to trial. [facility], [facility] Medical History (Updated 04/12/25 @ 15:02 by Marilu Pop NP) Class 2 severe obesity with body mass index (BMI) of 35 to 39.9 with serious comorbidity Anal fissure Impaired glucose tolerance Ear mass Surgical History History of ear surgery History of carpal tunnel surgery Family History Mother Diabetes mellitus WALLER (nonalcoholic steatohepatitis) Father No problems noted. Maternal Grandmother Leukemia Other Mental health disorder Substance use disorder Social History Housing: House Alcohol intake: current Alcohol intake frequency: a few times a week Patient Tobacco Use Status: Former Tobacco user Years Smoked: Used cigarettes for a couple of years but is currently a daily marijuana sm e-Cigarette/Vaping Use: Never Used service: No Current occupational status: retired Cognitive needs: No Hearing needs: No Vision needs: Yes (Glasses) Review of Systems Const Denies chills, Denies excessive sweating, Denies fever(s), Denies headache(s) and Denies night sweats Eyes Denies dry eyes, Denies irritation and Denies itchy eyes ENT Reports Normal hearing present, Denies headache(s), Denies nasal congestion, Denies nasal discharge, Denies post nasal drip and Denies sore throat Card Denies chest pain, Denies chest pain at rest, Denies chest pain with activity, Denies claudication, Denies leg edema, Denies dyspnea, Denies dyspnea on exertion, Denies orthopnea and Denies paroxysmal nocturnal dyspnea Resp Denies chest congestion, Denies cough, Denies excessive phlegm production, Denies pain on inspiration, Denies pain with cough, Denies dyspnea, Denies dysp ginny on exertion, Denies stridor and Denies wheezing Musc Denies myalgias Neuro Reports Normal hearing present and Denies headache(s) Endo Denies excessive sweating Zenon/Lymph Denies lymphadenopathy Aller/Immun Denies itchy eyes, Denies seasonal rhinorrhea and Denies wheezing Physical Exam Vital Signs: Last Vital Signs Pulse 60 04/12/25 13:37 BP 130/74 04/12/25 13:37 Pulse Ox 94 04/12/25 13:37 Oxygen Delivery Method Room Air 04/12/25 13:37 BMI result Body Mass Index 42.1 Const General: cooperative, healthy appearing, comfortable, no acute distress, well developed and alert Nutritional Appearance: obese Orientation/consciousness: patient oriented x3 Limitations: no limitations HEENT Head: Yes normal to inspection, Yes normocephalic and Yes atraumatic Ears: hearing grossly normal bilaterally and external ears normal Eyes General: appearance normal, both eyes and all related structures Eyelids: Yes eyelids normal Sclerae: sclerae normal EOM: EOMs intact bilaterally Neck Neck: Yes normal visual inspection and Yes no lymphadenopathy Lymphatic: no lymphadenopathy noted Chest Chest palpation & inspection: normal inspection of the chest Resp Effort & Inspection: normal respiratory effort, able to speak in complete sentences, no audible wheezes, no cough, no stridor, not tachypneic, no tripod positioning and no use of accessory muscles Auscultation: clear to auscultation bilaterally Cardio Jugular venous distension: no JVD Rate: regular rate Rhythm: regular rhythm Skin Other: warm, dry General skin exam: no rashes or lesions noted Neuro General: patient oriented x3 Cranial nerves: Yes Normal hearing present Cognition (Neuro): normal cognition Gait exam (Neuro): Normal gait present Extrem General: Yes normal to inspection, Yes capillary refill normal, Yes no clubbing, cyanosis or edema and Yes no pedal edema Psych Appearance: grossly normal and well kempt Speech and movement: Normal speech and movement present and Clear speech present Affect: normal affect Attitude: cooperative Thought process: Normal thought process present Thought content: Normal thought content present Insight: Good insight present (Psych) Judgement: Good judgement present (Psych) Assessment & Plan Assessment & Plan (1) Severe obstructive sleep apnea: Code(s): G47.33 - Obstructive sleep apnea (adult) (pediatric) Category: Medical (2) Nocturnal hypoxemia: Code(s): G47.34 - Idiopathic sleep related nonobstructive alveolar hypoventilation Category: Medical Plan Reviewed compliance report with patient and he has been using CPAP therapy in APAP mode with pressures 9-19 cm H20 on average <4 hours per night. He does report some difficulties adjusting, mostly with nasal congestion, advised to increase humidity and trial nasal spray as well as trialing different masks. He is aware the goal is to use CPAP therapy greater than 4 hours, at least 70% of the month. At this time, patient agreeable to in lab titration study to ensure optimal pressures and resolution of moderate nocturnal hypoxemia. All questions were answered and patient is in agreement of plan. Will follow up to review results or sooner if needed. Orders: Orders RT PSG in-lab sleep titration Today G47.33 - Obstructive sleep apnea (adult) (pediatric), G47.34 - Idiopathic sleep related nonobstructive alveolar hypoventilation Coding Level of Care Code Est Pt Level 4 (01069) Diagnoses Severe obstructive sleep apnea G47.33 Nocturnal hypoxemia G47.34
[2025-04-12 13:37] VITALS: BP 130/74; PULSE 60; O2SAT 94; BMI 42.1
== END 2025-04-12 14:02 | disposition home or self-care (01) ==
LOC: HO.HPS 13:35
PROVIDERS: PCP Nurse Practitioner Family; Visit Provider Nurse Practitioner Family
DX: G47.33 Obstructive sleep apnea (adult) (pediatric) (principal); G47.34 Idiopathic sleep related nonobstructive alveolar hypoventilation
CPT/HCPCS: 99214

== ENCOUNTER → 2025-04-12 13:34 | Outpatient (BNVA) | payer MEDICARE, OTHER, SELFPAY | PROVIDERS: PCP Nurse Practitioner Family; Visit Provider Nurse Practitioner Family | DX: G47.33 Obstructive sleep apnea (adult) (pediatric) (principal); G47.34 Idiopathic sleep related nonobstructive alveolar hypoventilation | CPT/HCPCS: 99212 ==

== ENCOUNTER → 2025-05-19 19:30 | Outpatient (REF) | payer MEDICARE, OTHER, SELFPAY ==
--- OUTSIDE RECORDS SUMMARY | 2025-05-19 22:01 | XMS_ITS | Patient Health Record ---
Author Organization [facility]any terry [place] Address [address] [place] [address] Care Team Providers Care [employer] Name Role Phone Lacie GRACE, Chacha Primary Care Provider U Ady Ivan Unavailable [phone] Allergies Allergen (clinical drug ingredient) Drug/Non Drug Allergy documented on EMR Reaction Allergy Type Onset Date Status morphine Morphine vomiting Drug Allergy Active Reason For Referral No Information Medications Medication SIG (Take, Route, Frequency, Duration) Notes Start Date End Date Status Avapro 150 MG Orally Active Atorvastatin Calcium 10 MG Orally Once a day Active Valsartan-hydroCHLOROthia zide 160-12.5 MG Orally Once a day Not-Ta lazaro amLODIPine Besylate 2.5 MG Orally Active Social History Tobacco Use: Social History Observation Description Date Details (start date - stop date) Never Smoker NA - NA Tobacco Use/Smoking Question Answer Notes Are you a: nonsmoker Additional Findings: Tobacco Non-User Current no n-smoker Alcohol Screen Question Answer Notes Did you have a drink containing alcohol in the p ast year? Yes Points 0 Interpretation Negative Tobacco use other than smoking: Question Answer Notes Are you an other tobacco user? No Plan Of Treatment Pending Test Test Name Order Date [id number] Plate 03/07/2018 [id number] Plate 12/05/2018 [id number] 04/28/2019 [id number] SKIN/TISSUE 05/12/2019 Insurance Providers Payer Name Payer Address Payer Phone Subscriber Number Group Number Insured Name Patient Relationship to Insured Coverage Start Date Coverage End Date [employer] ([employer]) [address] [place] [id number] Miki Moreno Self - patient is the insured Medical (General) History Medical History History ICD Code Arthritis Back,Hip,and Knee pain High blood pressure Measles Mumps Chicken pox Sciatica Joint implants/screws Cholesterol Surgical History Surgery Date(Month/Year) carpal tunnel surgery Rt wrist 10/02/17
== END ==
LOC: HO.SL 19:30
PROVIDERS: PCP Nurse Practitioner Family; Visit Provider Nurse Practitioner Family
DX: G47.33 Obstructive sleep apnea (adult) (pediatric) (principal); G47.34 Idiopathic sleep related nonobstructive alveolar hypoventilation
CPT/HCPCS: 95811

== ENCOUNTER → 2025-05-19 19:30 | Outpatient (BNV) | payer MEDICARE, OTHER, SELFPAY | PROVIDERS: PCP Nurse Practitioner Family; Visit Provider Internal Medicine | DX: G47.33 Obstructive sleep apnea (adult) (pediatric) (principal) | CPT/HCPCS: 95811 ==

== ENCOUNTER 2025-06-21 16:02 | Emergency (ER) | payer MEDICARE, OTHER, SELFPAY ==
--- NOTE | ~2025-06-21 | US_ITS ---
CLINICAL HISTORY: erythema and swelling post-op Venous duplex ultrasound right lower extremity COMPARISON: None provided. FINDINGS: Veins of the calf for not visualized secondary to overlying calf edema. The visualized deep veins are fully compressible with normal Doppler color flow and spectral tracings. No popliteal cyst. IMPRESSION: 1. Veins of the calf were not visualized secondary to overlying calf edema. Within limits of study, negative for right lower extremity deep vein thrombosis. This document has been electronically signed by: Noah Larios MD on 06/21/2025 18:23:32
[2025-06-21 17:01] VITALS: BP 131/60; PULSE 59; RESP 18; TEMP 37.1; O2SAT 95; BMI 39.5
--- NOTE | 2025-06-21 17:01 | ED.GENADULT ---
HPI - General Adult General Chief complaint: Extremity Injury, Lower Stated complaint: total knee replacement/swelling in calf area Time Seen by Provider: 06/21/25 20:01 Source: patient Mode of arrival: ambulatory Limitations: no limitations History of Present Illness ED Provider: HPI narrative: 70-year-old male with history of lymphedema, presenting with right lower extremity swelling and some erythema, has had history of cellulitis in that leg, no fevers or chills. He is status post total knee replacement on 06/15/2025 at [facility], erythema started yesterday and actually reports that it is getting better today. Related Data Previous Rx's ?Medication ?Instructions ?Recorded hydrocortisone 2.5 % topical cream 1 appl topical BID PRN skin 02/10/24 irritation #20 grams amlodipine 2.5 mg tablet 2.5 mg PO DAILY #90 tabs 02/21/25 atorvastatin 10 mg tablet 10 mg PO DAILY #90 tabs 02/21/25 irbesartan 150 mg tablet 150 mg PO DAILY #90 tabs 02/21/25 cephalexin 500 mg capsule 500 mg PO QID 7 days #28 caps 06/21/25 Allergies Allergy/AdvReac Type Severity Reaction Status Date / Time morphine Allergy Severe Vomiting Verified 06/21/25 17:04 Review of Systems Constitutional: Constitutional: Reports as per [facility] Past Medical History Medical History (Updated 06/21/25 @ 20:25 by Victoriano Zacarias DO) Class 2 severe obesity with body mass index (BMI) of 35 to 39.9 with serious comorbidity Anal fissure Impaired glucose tolerance Ear mass Surgical History History of ear surgery History of carpal tunnel surgery Family History Family History Mother Diabetes mellitus WALLER (nonalcoholic steatohepatitis) Father No problems noted. Maternal Grandmother Leukemia Other Mental health disorder Substance use disorder Social History Social History Housing: House Alcohol intake: current Alcohol intake frequency: a few times a week Patient Tobacco Use Status: Former Tobacco user Years Smoked: Used cigarettes for a couple of years but is currently a daily marijuana sm e-Cigarette/Vaping Use: Never Used Advance Directives: No Advance Directives Information Provided: No service: No Current occupational status: retired Cognitive needs: No Hearing needs: No Vision needs: Yes (Glasses) Physical Exam ED Vital Signs: Vital Signs - 24 hr 06/21/25 17:01 Temperature 98.8 F Pulse Rate 59 Respiratory Rate 18 Blood Pressure 131/60 Pulse Oximetry 95 Oxygen Delivery Method Room Air BMI result Body Mass Index 39.5 Const Other: Alert and oriented x4 Patient is otherwise well-appearing Examination of his right lower extremity reveals that he likely has a lymphedema, some erythema from the swelling distal pulses intact, flexes to about 30 to 45 degrees, lacks about 5 degrees of extension Examination of the lower extremity with some degree of lymphedema as well Surgical site is covered was postop dressing but there was no purulence, there was no drainage or redness around the edges Course Course Course Narrative: This is a rapid medical exam performed by Almaz Nathan NP: Additional HPI, ROS, PE not included below will be deferred to primary provider. Patient is a 70-year-old male with history of HTN, PAULA, obesity, R TKA on 06/15/25 presenting with complaint of right calf pain/swelling. Mid to distal lower leg erythematous, pitting edema to foot. Plan: labs, U/S Medical Decision Making Medical Decision Making MDM Narrative: Patient just had surgery, he has no fevers no chills, ultrasound without any evidence for DVT, he has erythema in the swelling is most likely due to lymphedema, I recommended compression stockings, and wait and see antibiotics, he will get in touch with his orthopod tomorrow, patient agrees to this plan Differential Diagnosis Differential Diagnoses: The differential diagnosis associated with the presentation includes (DVT, septic joint, cellulitis, lymphedema,) Lab Data 06/21/25 17:14 06/21/25 17:14 Labs: Lab Results 06/21/25 Range/Units 17:14 WBC 9.9 (4.8-10.8) X10*3/uL RBC 3.89 L D (4.60-5.80) X10*6/uL Hgb 10.8 L D (14.0-18.0) g/dl Hct 32.5 L D (42.0-52.0) % MCV 83.5 (80.0-98.0) fL MCH 27.8 (27.0-33.0) pg MCHC 33.2 (31.0-36.0) g/dl RDW 14.0 (11.0-16.0) % Plt Count 352 D (160-400) X10*3/uL MPV 9.0 L (9.4-12.4) fL Immature Gran % (Auto) 0.8 H (0.0-0.4) % Neut % (Auto) 62.1 (45-73) % Lymph % (Auto) 21.2 (20-40) % [place] % (Auto) 13.7 H (2-11) % Eos % (Auto) 1.9 (0-4) % Baso % (Auto) 0.3 (0-2) % Lymph # (Auto) 2.1 (1.2-4.9) X10*3/uL [place] # (Auto) 1.4 H (0.1-1.2) X10*3/uL Eos # (Auto) 0.2 (0.0-0.4) X10*3/uL Baso # (Auto) 0.0 (0.0-0.2) X10*3/uL Abs Immat Gran (auto) 0.08 H (0.00-0.03) X10*3/uL Absolute Neuts (auto) 6.1 (2.0-8.3) x10*3/uL Absolute Nucleated RBC 0.000 (0.0-0.012) X10*3/uL Nucleated RBC % (auto) 0.0 (0.0-0.2) /100WBC Sodium 135 (135-145) mmol/L Potassium 3.7 D (3.3-5.1) mmol/L Chloride 99 (96-108) mmol/L Carbon Dioxide 26 (22-29) mmol/L Anion Gap 14 (12-20) BUN 15 (9-16) mg/dL Creatinine 0.61 (0.5-1.4) mg/dL Estim Creat Clear Calc 144.4 Estimated GFR > 60 Random Glucose 124 H (60-115) mg/dL Calcium 8.6 D (8.4-10.2) mg/dL Total Bilirubin 1.4 H (0.0-1.0) mg/dL AST 24 (5-37) U/L ALT 16 (0-40) U/L Alkaline Phosphatase 69 (39-117) U/L Total Protein 6.4 L (6.5-8.0) g/dL Albumin 3.9 (3.5-5.0) g/dL Discharge Plan Discharge Clinical Impression: Lymphedema of right lower extremity Patient Disposition: Home, Self-Care Additional Instructions: As we discussed, use antibiotics only if the redness getting worse he spike fevers, prefer that you speak to your orthopedic surgeon and be re-evaluated to determine if you need antibiotics, the swelling and the redness to me appears more consistent with lymphedema and cellulitis, I believe he would benefit from compression stockings The surgical site itself looked good there was no purulent drainage Prescriptions: New cephalexin 500 mg capsule 500 mg PO QID 7 Days Qty: 28 0RF No Action irbesartan 150 mg tablet 150 mg PO DAILY Qty: 90 1RF amlodipine 2.5 mg tablet 2.5 mg PO DAILY Qty: 90 1RF atorvastatin 10 mg tablet 10 mg PO DAILY Qty: 90 1RF hydrocortisone 2.5 % cream 1 appl topical BID PRN (Reason: skin irritation) Qty: 20 0RF Print Language: Korean
[2025-06-21 17:42] LABS: MANUAL DIFF FLAG NO
[2025-06-21 17:44] LABS: Hematocrit 32.5 % (42.0-52.0); Hemoglobin 10.8 g/dl (14.0-18.0); Imm Gran Abs Auto 0.08 X10*3/uL (0.00-0.03); Imm Gran Pct Auto 0.8 % (0.0-0.4); Lymphocytes Absolute Auto 2.1 X10*3/uL (1.2-4.9); Mean Corpuscular HGB Conc 33.2 g/dl (31.0-36.0); Mean Corpuscular Hemoglobin 27.8 pg (27.0-33.0); Mean Corpuscular Volume 83.5 fL (80.0-98.0); NRBC Abs Auto 0.000 X10*3/uL (0.0-0.012); NRBC Pct Auto 0.0 /100WBC (0.0-0.2); Platelet Count 352 X10*3/uL (160-400); Red Blood Count 3.89 X10*6/uL (4.60-5.80); White Blood Count 9.9 X10*3/uL (4.8-10.8)
[2025-06-21 17:58] LABS: Alanine Aminotransferase 16 U/L (0-40); Albumin Level 3.9 g/dL (3.5-5.0); Alkaline Phosphatase 69 U/L (39-117); Anion Gap 14 (12-20); Aspartate Amino Transferase 24 U/L (5-37); Blood Urea Nitrogen 15 mg/dL (9-16); Calcium 8.6 mg/dL (8.4-10.2); Carbon Dioxide 26 mmol/L (22-29); Chloride 99 mmol/L (96-108); Creatinine Clr Calc Pharmacy 144.4; Estimated Glomerular Filt Rate > 60; Potassium 3.7 mmol/L (3.3-5.1); Sodium 135 mmol/L (135-145); Total Protein 6.4 g/dL (6.5-8.0)
[2025-06-21 20:40] VITALS: BP 131/60; PULSE 59; RESP 18; TEMP 37.1; O2SAT 95
== END 2025-06-21 20:41 | disposition home or self-care (01) ==
PROVIDERS: Registered Nurse Emergency; Emergency Provider Emergency Medicine; PCP Nurse Practitioner Family
DX: I97.89 Other postprocedural complications and disorders of the circulatory system, not elsewhere classified (principal); I89.0 Lymphedema, not elsewhere classified; R60.0 Localized edema; M79.661 Pain in right lower leg; Z96.651 Presence of right artificial knee joint; E66.01 Morbid (severe) obesity due to excess calories; Z68.39 Body mass index [BMI] 39.0-39.9, adult; Z79.899 Other long term (current) drug therapy
CPT/HCPCS: 36415; 80053; 85025; 93971; 99282; 99284

== ENCOUNTER → 2025-06-21 17:03 | Outpatient (BNV) | payer MEDICARE, OTHER, SELFPAY | PROVIDERS: PCP Nurse Practitioner Family; Visit Provider Radiology Diagnostic Radiology | DX: R22.41 Localized swelling, mass and lump, right lower limb (principal) | CPT/HCPCS: 93971 ==

== ENCOUNTER 2025-08-02 13:40 | Outpatient (AMB) | payer MEDICARE, OTHER, SELFPAY ==
[2025-08-02 13:45] VITALS: BP 118/66; PULSE 57; O2SAT 97; BMI 38.2
--- NOTE | 2025-08-02 13:45 | A.OFFVIS_ITS ---
Vital Signs 08/02/25 13:45 Height 5 ft 8 in Weight 251 lb 5.231 oz BMI 38.2 BP 118/66 Blood Pressure Location Lt brachial Position Sitting Pulse 57 Pulse Source Pulse Oximeter Pulse Oximetry (%) 97 Oxygen Delivery Method Room Air Intake Visit Reasons: Obstructive sleep apnea Allergies morphine Allergy (Severe, Verified 08/02/25 13:49) Vomiting HPI HPI Obstructive sleep apnea: Details: Miki is a pleasant 70 year old male, minimal former tobacco smoker and everyday marijuana smoker ,with underlying severe obstructive sleep apnea and moderate nocturnal hypoxemia. Prior home sleep study revealed severe PAULA, AHI 36.6, with nocturnal hypoxemia, lowest 82%, <88% 126 minutes, with recommendations for in lab sleep study however patient lost to follow up. At the last visit, he was sent for in lab titration study and presents to review results as well as compliance report. At this time, he denies any respiratory symptoms. [facility] Medical History (Updated 06/22/25 @ 00:01 by Yovani Jauregui) Class 2 severe obesity with body mass index (BMI) of 35 to 39.9 with serious comorbidity Anal fissure Impaired glucose tolerance Ear mass Surgical History History of ear surgery History of carpal tunnel surgery Family History Mother Diabetes mellitus WALLER (nonalcoholic steatohepatitis) Father No problems noted. Maternal Grandmother Leukemia Other Mental health disorder Substance use disorder Social History Housing: House Alcohol intake: current Alcohol intake frequency: a few times a week Patient Tobacco Use Status: Former Tobacco user Years Smoked: Used cigarettes for a couple of years but is currently a daily marijuana sm e-Cigarette/Vaping Use: Never Used service: No Current occupational status: retired Cognitive needs: No Hearing needs: No Vision needs: Yes (Glasses) Review of Systems Const Denies chills, Denies excessive sweating, Denies fever(s), Denies headache(s) and Denies night sweats Eyes Denies dry eyes, Denies irritation and Denies itchy eyes ENT Reports Normal hearing present, Denies headache(s), Denies nasal congestion, Denies nasal discharge, Denies post nasal drip and Denies sore throat Card Denies chest pain, Denies chest pain at rest, Denies chest pain with activity, Denies claudication, Denies leg edema, Denies dyspnea, Denies dyspnea on exertion, Denies orthopnea and Denies paroxysmal nocturnal dyspnea Resp Denies chest congestion, Denies cough, Denies excessive phlegm production, Denies pain on inspiration, Denies pain with cough, Denies dyspnea, Denies dyspnea on exertion, Denies stridor and Denies wheezing Musc Denies myalgias Neuro Reports Normal hearing present and Denies headache(s) Endo Denies excessive sweating Zenon/Lymph Denies lymphadenopathy Aller/Immun Denies itchy eyes, Denies seasonal rhinorrhea and Denies wheezing Physical Exam Vital Signs: Last Vital Signs Pulse 57 08/02/25 13:45 BP 118/66 08/02/25 13:45 Pulse Ox 97 08/02/25 13:45 Oxygen Delivery Method Room Air 08/02/25 13:45 BMI result Body Mass Index 38.2 Const General: cooperative, healthy appearing, comfortable, no acute distress, well developed and alert Nutritional Appearance: obese Orientation/consciousness: patient oriented x3 Limitations: no limitations HEENT Head: Yes normal to inspection, Yes normocephalic and Yes atraumatic Ears: hearing grossly normal bilaterally and external ears normal Eyes General: appearance normal, both eyes and all related structures Eyelids: Yes eyelids normal Sclerae: sclerae normal EOM: EOMs intact bilaterally Neck Neck: Yes normal visual inspection and Yes no lymphadenopathy Lymphatic: no lymphadenopathy noted Chest Chest palpation & inspection: normal inspection of the chest Resp Effort & Inspection: normal respiratory effort, able to speak in complete sentences, no audible wheezes, no cough, no stridor, not tachypneic, no tripod positioning and no use of accessory muscles Auscultation: clear to auscultation bilaterally Cardio Jugular venous distension: no JVD Rate: regular rate Rhythm: regular rhythm Skin Other: warm, dry General skin exam: no rashes or lesions noted Neuro General: patient oriented x3 Cranial nerves: Yes Normal hearing present Cognition (Neuro): normal cognition Gait exam (Neuro): Normal gait present Extrem General: Yes normal to inspection, Yes capillary refill normal, Yes no clubbing, cyanosis or edema and Yes no pedal edema Psych Appearance: grossly normal and well kempt Speech and movement: Normal speech and movement present and Clear speech present Affect: normal affect Attitude: cooperative Thought process: Normal thought process present Thought content: Normal thought content present Insight: Good insight present (Psych) Judgement: Good judgement present (Psych) Assessment & Plan Assessment & Plan (1) Severe obstructive sleep apnea: Code(s): G47.33 - Obstructive sleep apnea (adult) (pediatric) Category: Medical (2) Nocturnal hypoxemia: Code(s): G47.34 - Idiopathic sleep related nonobstructive alveolar hypoventilation Category: Medical Plan Reviewed compliance report with patient and he has been using CPAP therapy in APAP mode with pressures 9-19 cm H20 on average >4 hours per night for only 28% of the time over the last two months. There was also note of moderate leaking and will attempt new masks. He recently underwent total right knee replacement which has significant disrupted sleep and is motivated to be compliant. Reviewed in lab titration study which revealed resolution of obstructive events and hypoxemia with CPAP mode pressure of 9 cmH2O, changed in AirView. All questions were answered and patient is in agreement of plan. Will follow upin 3 months or sooner if needed. Coding Level of Care Code Est Pt Level 4 (60326) Diagnoses Severe obstructive sleep apnea G47.33 Nocturnal hypoxemia G47.34
--- OUTSIDE RECORDS SUMMARY | 2025-08-02 15:54 | XMS_ITS | Patient Health Record ---
Author Organization [facility] Brittany terry Jaylon Address [address] [place] [address] Care Team Providers Care Supervisor Rice Milling Name Role Phone Lacie GRACE, Chacha Primary Care Provider U Ady Ivan Unavailable [phone] Allergies Allergen (clinical drug ingredient) Drug/Non Drug [...] Treatment Pending Test Test Name Order Date [id number] Plate 03/07/2018 [id number] Plate 12/05/2018 [id number] 04/28/2019 [id number] SKIN/TISSUE 05/12/2019 Insurance Providers Payer Name Payer Address Payer Phone Subscriber Number Group Number Insured Name Patient Relationship to Insured Coverage Start Date Coverage End Date [employer] ([employer]) [address] [place] [id number] [phone] [id number] More[address] Self - patient is the insured Medical (General) History Medical History History ICD Code Arthritis Back,Hip,and Knee pain High blood pressure Measles Mumps Chicken pox Sciatica Joint implants/screws Cholesterol Surgical History Surgery Date(Month/Year) carpal tunnel surgery Rt wrist 10/02/17
--- OUTSIDE RECORDS SUMMARY | 2025-08-02 15:54 | XMS_ITS | Clinical Summary ---
Author Organization [employer] Address [address] [place] [address] [address] [place] [address] Care Team Providers Care Assembler Golf Wood Head Name Role Phone Unavailable Primary Care Provider Unavailabl e Social History Tobacco Use Types Packs/Day Years Used Date Smoking Tobacco: Never Assessed Sex and Gender Information Value Date Recorded Sex Assigned at Male 09/24/2022 10:40 AM EDT Legal Sex Male 10:40 AM EDT Gender Identity Male 09/24/2022 10:40 AM EDT Sexual Orientation Straight 09/24/2022 10 :40 AM EDT Last Filed Vital Signs Vital Sign Reading Time Taken Comments Blood Pressure 116/75 06/28/2022 12:08 AM EDT Pulse 59 06/28/2022 12:08 AM EDT Temperature - - Respiratory Rate - - Oxygen Saturation - - Inhaled Oxygen Concentration - - Weight 97.6 kg (215 lb 3.2 oz) 06/28/2022 12:08 AM EDT Height 168.4 cm (5' 6.3 ) 06/28/2022 12:08 AM ED T Body Mass Index 34.42 06/28/2022 12:08 AM EDT Plan of Treatment Health Maintenance Due Date Last Done Comments CT Colonography 1957 Colonoscopy 1957 Colorectal Cancer Screening 1957 Depression Screening 1957 FIT DNA/Cologuard 1957 FIT 1957 FOBT 1957 Lipid Panel 1957 Sigmoidoscopy 1957 Alcohol/Substance Use Screening 1969 Tobacco Screening 1969 DTaP/Tdap/Td Vaccines (1 - Tdap) 02/14/1976 Pneumococcal Vaccine: 50+ Years (1 of 1 - PCV) 2007 Zoster Vaccines (1 of 2) 2007 COVID-19 Vaccine (3 - 2024-2 6 season) 2025 03/21/2022, 11/06/2021 Influenza Vaccine (#1) 2025 RSV Patients and Patients Aged 60 years or older (1 - 1-dose 75+ series) 02/14/2032 HIB Vaccines Aged Out No longer eligi ble based on patient's age to complete this topic HPV Vaccines Aged Out No longer eligi ble based on patient's age to complete this topic Hepatitis A Vaccines Aged Out No long er eligible based on patient's age to complete this topic Hepatitis B Vaccines Aged Out No long er eligible based on patient's age to complete this topic IPV Vaccines Aged Out No longer eligi ble based on patient's age to complete this topic Meningococcal B Vaccine Aged Out No l onger eligible based on patient's age to complete this topic Meningococcal Vaccine Aged Out No chloe howard eligible based on patient's age to complete this topic RSV under 20 months Aged Out No longe r eligible based on patient's age to complete this topic Rotavirus Vaccines Aged Out No longer eligible based on patient's age to complete this topic
== END 2025-08-02 14:32 | disposition home or self-care (01) ==
LOC: HO.HPS 13:41
PROVIDERS: PCP Nurse Practitioner Family; Visit Provider Nurse Practitioner Family
DX: G47.33 Obstructive sleep apnea (adult) (pediatric) (principal); G47.34 Idiopathic sleep related nonobstructive alveolar hypoventilation
CPT/HCPCS: 99214

== ENCOUNTER → 2025-08-02 13:40 | Outpatient (BNVA) | payer MEDICARE, OTHER, SELFPAY | PROVIDERS: PCP Nurse Practitioner Family; Visit Provider Nurse Practitioner Family | DX: G47.33 Obstructive sleep apnea (adult) (pediatric) (principal); G47.34 Idiopathic sleep related nonobstructive alveolar hypoventilation; Z99.89 Dependence on other enabling machines and devices | CPT/HCPCS: 99212 ==